=== PATIENT | male | born 1995 | race Hispanic/Latino ===

== ENCOUNTER 2023-12-06 14:35 | Outpatient (CLI) | payer OTHER, SELFPAY ==
--- NOTE | ~2023-12-06 | US_ITS ---
EXAMINATION: US scrotum doppler DATE: 12/06/2023 15:24 INDICATION: Disorder of male genital organs, unspecified. Left scrotal lump. TECHNIQUE: Grayscale and Doppler ultrasound images of the testes were obtained. COMPARISON: None. FINDINGS: The right testis measures 3.9 x 2.1 x 2.6 cm. The left testis measures 4.0 x 1.9 x 2.6 cm. There is bilateral testicular microlithiasis. There is normal vascular flow to both testes. The right epididymis is normal with normal vascular flow. The left epididymis demonstrates a 2.1 cm cyst. The re is no varicocele or hydrocele. IMPRESSION: 1. 2.1 cm benign cyst in the left epididymis. Reviewed, dictated and finalized at location E.
== END 2023-12-06 14:36 ==
PROVIDERS: PCP Nurse Practitioner Adult Health; Visit Provider Nurse Practitioner Adult Health
DX: N50.3 Cyst of epididymis (principal)
CPT/HCPCS: 76870; 93976

== ENCOUNTER 2024-06-20 10:10 | Outpatient (CLI) | payer OTHER, SELFPAY ==
[2024-06-20 10:48] LABS: Alanine Aminotransferase 56 U/L (6-50); Albumin Level 4.8 g/dL (3.5-5.1); Alkaline Phosphatase 79 U/L (38-126); Aspartate Amino Transferase 32 U/L (17-59); Bilirubin,Total 0.8 mg/dL (0.2-1.3); Cholesterol 229 mg/dL (0-200); HDL Direct 54 mg/dL; Triglycerides 79 mg/dL (<150)
[2024-06-20 10:59] LABS: LDL Cholesterol Direct 132 mg/dL
== END 2024-06-20 10:11 | disposition home or self-care (01) ==
PROVIDERS: PCP Family Medicine; Visit Provider Nurse Practitioner Adult Health
DX: E78.00 Pure hypercholesterolemia, unspecified (principal); R74.01 Elevation of levels of liver transaminase levels
CPT/HCPCS: 36415; 80061; 80076